=== PATIENT | female | born 1965 | race Caucasian/White ===

== ENCOUNTER 2018-01-22 08:51 | Emergency (ER) | payer BC, MEDICARE ==
[~2018-01-22] VITALS: Ht 154.9 cm; Wt 65.8 kg
[~2018-01-22 08:51] MED LIST: ? CHOLESTEROL MED; ALDACTONE100 MG PO; ATIVAN0.5 MG PO; AUGMENTIN 875875 MG PO; AZITHROMYCIN 2250 MG PO; CLONAZEPAM 1 MG1 M1 PO; DILAUDID2 M1 PO; EFFEXOR 5050 MG/1 T1 PO; FENTANYL PA50 MCG/HR TRANSDERM; HYDROCODONE-AP1 EA11 PO; LIORESAL 10 MG10 MG PO; NORFLEX100 MG PO; OXYCODON-ACETA1 EAC1 PO; OXYCODONE HCL5 M1; PAXIL 20 MG TAB20 MG PO; PERCOCET 5-3251 EACH PO; SEROQUEL 50 MG50 M1; TRAMADOL; TRAZODONE HCL100 MG PO; ULTRACET TABLET1 TAB PO
[2018-01-22] MEDS ORDERED: TRAMADOL 50 MG50 MG PO (09:01)
[2018-01-22] MEDS ORDERED: ZANAFLEX4 MG PO (09:02)
[2018-01-22 09:15] LABS: ABSOLUTE EOSINOPHILS 0.2 thou/uL (0.0-0.7); ABSOLUTE LYMPHOCYTES 1.9 thou/uL (0.8-5.3); ABSOLUTE MONOCYTES 0.7 thou/uL (0.0-1.2); ABSOLUTE NEUTROPHILS 2.4 thou/uL (1.6-8.1); BASOPHILS 0.9 %; EOSINOPHILS 4.4 %; HEMATOCRIT 40.6 % (37.0-47.0); HEMOGLOBIN 13.7 gm/dL (12.0-15.0); LYMPHOCYTES 35.7 %; MCH 30.8 pg (26.0-34.0); MCHC 33.7 g/dL (28.0-37.0); MCV 91.5 fL (80.0-100.0); MONOCYTES 13.4 %; MPV 9.2 fl. (7.2-11.1); NUCLEATED RBCS 0 /100WBC; PLATELET COUNT* 270 thou/uL (150-400); POLYS 45.6 %; RBC 4.43 mil/uL (4.20-5.00); RDW-CV 13.8 % (10.5-14.5); WBC 5.4 thou/uL (4.0-11.0)
[2018-01-22 09:23] LABS: CALCIUM 8.8 mg/dL (8.5-10.1); CREATININE 0.8 mg/dL (0.6-1.3); POTASSIUM 3.8 mmol/L (3.5-5.1)
[2018-01-22 09:25] LABS: APTT 27.9 Seconds (25.0-31.3); PROTIME 9.8 Seconds (9.20-11.50)
[2018-01-22 09:28] LABS: ALBUMIN 3.7 g/dL (3.4-5.0); TOTAL BILIRUBIN 0.2 mg/dL (<0.1-1.0); TOTAL PROTEIN 7.4 g/dL (6.4-8.2)
[2018-01-22] MEDS ORDERED: PREDNISONE 20 M20 M1 PO (09:54)
[2018-01-22 10:09] VITALS: BP 113/74
--- NOTE | 2018-01-22 12:07 | EKG ---
[place] [address] ELECTROCARDIOGRAM REPORT Name: EUNICE LOUIS Room: [facility]#: [id number] Admission: 01/22/18 Attend Phys: Discharge: 01/22/18 Date of : 61 Report #: [id number] THIS REPORT FOR: //name// [facility] ED Test Date: 2018-01-22 Test Time: 09::18 Pat Name: EUNICE LOUIS Department: Room: Gender: F [employer] Manager: Josh BUSTILLOS : 1965 Requested By: Lavon Kumar Order Number: [id number] MD: Robles Mead Measurements Intervals [place] Rate: 77 P: 60 DC: 154 QRS: 45 QRSD: 74 T: 37 QT: 363 QTc: 411 Interpretive Statements Sinus rhythm Compared to ECG 06/11/2010 03:54:13 No significant changes Electronically Signed On 01-22-2018 12:07:43 CDT by Robles Mead [email or web address] <ELECTRONICALLY SIGNED> By: Robles Mead MD, [facility] 01/22/18 [id number] Robles Mead MD, [facility] /EPI
== END 2018-01-22 10:10 | disposition home or self-care (01) ==
LOC: M.ERS 08:51
PROVIDERS: Family Medicine
DX: R52 Pain, unspecified (principal); M19.90 Unspecified osteoarthritis, unspecified site; M41.9 Scoliosis, unspecified; Z90.710 Acquired absence of both cervix and uterus; Z88.1 Allergy status to other antibiotic agents

== ENCOUNTER 2019-09-26 16:07 | Emergency (ER) | payer MEDICARE ==
[~2019-09-26] VITALS: Ht 154.9 cm; Wt 63.5 kg
[~2019-09-26 16:07] MED LIST changes: +PREDNISONE 20 M20 M1 PO; +TRAMADOL 50 MG50 MG PO; +ZANAFLEX4 MG PO
[2019-09-26] MEDS ORDERED: BACLOFEN5 MG PO (16:17)
[2019-09-26 16:57] LABS: URINE BILIRUBIN NEGATIVE (Negative); URINE BLOOD NEGATIVE (Negative); URINE CLARITY CLEAR; URINE COLOR YELLOW; URINE GLUCOSE-RANDOM NEGATIVE (Negative); URINE KETONES NEGATIVE (Negative); URINE LEUKOCYTES-REFLEX NEGATIVE (Negative); URINE NITRITE-REFLEX NEGATIVE (Negative); URINE PROTEIN NEGATIVE (Negative); URINE SPECIFIC GRAVITY 1.025 (1.005-1.030); URINE UROBILINOGEN 0.2 E.U./dl (0.2-1.0)
[2019-09-26] MEDS ORDERED: PERCOCET PO (17:06)
[2019-09-26] MEDS ORDERED: LIDODERM1 EACH TOP (18:35)
[2019-09-26] MEDS ORDERED: FLEXERIL PO (18:35)
[2019-09-26 19:06] VITALS: BP 122/70
== END 2019-09-26 19:07 | disposition home or self-care (01) ==
LOC: M.ERS 16:07
PROVIDERS: Physician Assistant
DX: M79.605 Pain in left leg (principal); M54.9 Dorsalgia, unspecified; R10.2 Pelvic and perineal pain; Z90.710 Acquired absence of both cervix and uterus; Z85.828 Personal history of other malignant neoplasm of skin; Z88.8 Allergy status to other drugs, medicaments and biological substances